=== PATIENT | female | born 1995 | race Two or more races ===

== ENCOUNTER 2019-07-06 20:29 | Emergency (ER) | payer OTHER ==
[2019-07-06 20:36] VITALS: BP 134/82
[2019-07-06] MEDS ORDERED: IBUPROFEN 800 MG TABLET PO STA (20:45)
--- NOTE | 2019-07-06 20:56 | ED Physician Documentation ---
PD HPI LOWER EXT INJURY - Stated complaint Stated Complaint: RT ANKLE INJ - Chief complaint Chief Complaint: Trauma Ext - History obtained from History obtained from: Patient - History of Present Illness PD HPI LOW EXT INJURY LOCATION: Right, Ankle, Foot Type of injury: Twist Where injury occurred: Home Timing - onset: How many hours ago (4) Timing - duration: Hours (4) Timing - details: Abrupt onset Pain level max: 8 Pain level now: 7 Improved by: Rest, Ice, Immobilization Worsened by: Moving, Palpating Associated symptoms: Swelling. No: Weakness, Numbness, Tingling, Discolored Contributing factors: No: Anticoagulated Similar symptoms before: Has not had sx before Recently seen: Not recently seen Review of Systems Constitutional: denies: Fever : denies: Now EGA Musculoskeletal: denies: Neck pain, Back pain PD PAST MEDICAL HISTORY - Past Medical History Past Medical History: No - Past Surgical History Past Surgical History: No - Present Medications Home Medications: Ambulatory Orders Medication Instructions Recorded Confirmed Ibuprofen [Motrin] 800 mg PO Q8H PRN #30 tablet 07/06/19 - Allergies Allergies/Adverse Reactions: Allergies Allergy/AdvReac Type Severity Reaction Status Date / Time No Known Drug Allergies Allergy Verified 07/06/19 20:33 - Living Situation Living Situation: reports: With family Living Arrangement: reports: At home - Social History Does the pt smoke?: No Smoking Status: Never smoker - Family History Family history: reports: Non contributory PD ED PE NORMAL - Vitals Vital signs reviewed: Yes - General General: Alert and oriented X 3, No acute distress - HEENT HEENT: Moist mucous membranes - Derm Derm: Warm and dry - Extremities Extremities: Other (R foot and ankle - TTP diffusely over the foot and ankle. no deformity. no tenderness over the proximal tib/fib. NVI.) - Neuro Neuro: Alert and oriented X 3 Results - Vitals Vitals: Vital Signs - 24 hr 07/06/19 20:33 Temperature 36.8 C Heart Rate 84 Respiratory 14 Rate Blood Pressure 134/82 H O2 Saturation 98 Oxygen O2 Source Room air - Rads (name of study) R foot xray Radiology: Prelim report reviewed, EMP read contemporaneously, See rad report (Minimally displaced avulsion fracture at the base of the fifth metatarsal. ) R ankle xray Radiology: Prelim report reviewed, EMP read contemporaneously, See rad report (Minimally displaced avulsion fracture at the base of the fifth metatarsal. ) Procedures - Splint (location) Right lower extremity Splint applied by: Physician, Tech Type of splint: Fiberglass, Short leg, Posterior Other: Patient tolerated well, No complications, Neurovascular intact, Crutches provided PD MEDICAL DECISION MAKING - ED course Complexity details: reviewed results, re-evaluated patient, considered differential, d/w patient, d/w family ED course: Patient with a minimally displaced avulsion fracture at the base of the fifth metatarsal. Placed in a short leg posterior splint and given crutches. We will have her follow-up with orthopedics for further care. Neurovascularly intact after splint application. Patient counseled regarding signs and symptoms for which I believe and urgent re-evaluation would be necessary. Patient with good understanding of and agreement to plan and is comfortable going home at this time This document was made in part using voice recognition software. While efforts are made to proofread this document, sound alike and grammatical errors may occur. Departure - Departure Disposition: 01 Home, Self Care Clinical Impression: Fracture of base of fifth metatarsal bone Qualifiers: Encounter type: initial encounter Fracture type: closed Laterality: right Qualified Code(s): S92.351A - Displaced fracture of fifth metatarsal bone, right foot, initial encounter for closed fracture Condition: Good Instructions: ED Fx Foot Follow-Up: AGUSTIN DE LOS SANTOS MD [Primary Care Provider] - [facility] [Provider Group] - Within 1 week Prescriptions: Ibuprofen [Motrin] 800 mg PO Q8H PRN #30 tablet PRN Reason: PAIN &/OR FEVER Comments: Return if you worsen. Do not bear weight on this injury. They will likely change you to a walking boot in a week or so. Call orthopedics tomorrow for an appointment.
--- NOTE | 2019-07-06 21:21 | XRAY Report ---
Reason: fall, R foot xray Procedure Date: 07/06/2019 Accession Number: [id number] / [id number] Procedure: XR - Foot 3 View RT CPT Code: Final Report FULL RESULT: EXAM: RIGHT FOOT RADIOGRAPHY EXAM DATE: 07/06/2019 08:44 PM. CLINICAL HISTORY: Fall, R foot x-ray. COMPARISON: ANKLE 3 VIEW RT 07/06/2019 8:42 PM. TECHNIQUE: 3 views. FINDINGS: Bones: Minimally displaced 7 mm fragment of bone at the base of the fifth metatarsal. The remaining bone architecture and alignment appear intact. No bone lesions. Joints: Normal. No subluxations. Soft Tissues: Soft tissue swelling about the fracture. IMPRESSION: Minimally displaced avulsion fracture at the base of the fifth metatarsal. RADIA
--- NOTE | 2019-07-06 21:22 | XRAY Report ---
Reason: fall, R ankle pain Procedure Date: 07/06/2019 Accession Number: [id number] / [id number] Procedure: XR - Ankle 3 View RT CPT Code: Final Report FULL RESULT: EXAM: RIGHT ANKLE RADIOGRAPHY EXAM DATE: 07/06/2019 08:42 PM. CLINICAL HISTORY: Fall, R ankle pain. COMPARISON: FOOT 3 VIEW RT 07/06/2019 8:44 PM. TECHNIQUE: 3 views. FINDINGS: Bones: Minimally displaced 7 mm fragment of bone at the base of the fifth metatarsal. The remaining bone architecture and alignment appear intact. No bone lesions. Joints: Normal. No effusion. No subluxations. The ankle mortise is normally aligned. Soft Tissues: Soft tissue swelling about the fracture. IMPRESSION: Minimally displaced avulsion fracture at the base of the fifth metatarsal. RADIA
== END 2019-07-06 21:58 | disposition home or self-care (01) ==
LOC: ED 20:29
DX: S92.351A Displaced fracture of fifth metatarsal bone, right foot, initial encounter for closed fracture (principal); X50.1XXA Overexertion from prolonged static or awkward postures, initial encounter; Y93.02 Activity, running; Y92.009 Unspecified place in unspecified non-institutional (private) residence as the place of occurrence of the external cause
CPT/HCPCS: 29515; 73610; 73630; 99283; 99284; A9270

== ENCOUNTER 2019-12-27 13:49 | Emergency (ER) | payer OTHER ==
--- NOTE | 2019-12-27 13:54 | ED Physician Documentation ---
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 No: Weakness, Numbness Similar symptoms before: Has not had sx before Review of Systems Skin: reports: Abrasion (s) (index fingertip with abrasion, minimal bleeding.). denies: Laceration (s) Musculoskeletal: reports: Other (pinching type crush injury to tips of fingers. No blood under nails. Tender at tips. Not tender at DIP area.) PD PAST MEDICAL HISTORY - Past Surgical History Past Surgical History: No - Present Medications Home Medications: Ambulatory Orders Medication Instructions Recorded Confirmed Ibuprofen [Motrin] 800 mg PO Q8H PRN #30 tablet 07/06/19 Hydrocodone/Acetaminophen [Kerrick 1 each PO Q6H PRN #10 tablet 12/27/19 5-325 Tablet] Ibuprofen [Motrin] 600 mg PO TID PRN #25 tab 12/27/19 - Allergies Allergies/Adverse Reactions: Allergies Allergy/AdvReac Type Severity Reaction Status Date / Time No Known Drug Allergies Allergy Verified 07/06/19 20:33 - Social History Does the pt smoke?: No Smoking Status: Never smoker PD ED PE NORMAL - Vitals Vital signs reviewed: Yes - General General: Alert and oriented X 3, Well developed/nourished, Other (appears in pain and anxious about the fingertips, reluctant for exam/guarding them. ) - Extremities Extremities: Other (pinching type crush injury to tips of fingers. No blood under nails. Tender at tips. Not tender at DIP area.) - Neuro Neuro: No motor deficit, No sensory deficit Results - Vitals Vitals: Vital Signs - 24 hr 12/27/19 12/27/19 14:07 14:52 Temperature 36.3 C L 36.8 C Heart Rate 88 76 Respiratory 20 15 Rate Blood Pressure 134/78 H 139/84 H O2 Saturation 99 99 Oxygen O2 Source Room air - Rads (name of study) fingers xray Radiology: Prelim report reviewed (no fractures), See rad report PD MEDICAL DECISION MAKING - ED course Complexity details: considered differential, d/w patient Departure - Departure Disposition: 01 Home, Self Care Clinical Impression: Finger contusion Qualifiers: Encounter type: initial encounter Finger: unspecified finger Damage to nail status: without damage Qualified Code(s): S60.00XA - Contusion of unspecified finger without damage to nail, initial encounter Condition: Stable Record reviewed to determine appropriate education?: Yes Instructions: ED Contusion Finger Follow-Up: AGUSTIN DE LOS SANTOS MD [Primary Care Provider] - Prescriptions: Ibuprofen [Motrin] 600 mg PO TID PRN #25 tab PRN Reason: Pain Hydrocodone/Acetaminophen [Kerrick 5-325 Tablet] 1 each PO Q6H PRN #10 tablet PRN Reason: Pain Comments: Your x-ray appears normal without any signs of fractures. The bruising and swelling will hurt in the short-term for a day or 2 until the swelling is down but should improve fairly readily. Use anti-inflammatory such as ibuprofen. Add pain medicine if needed. Ice elevate and rest your fingers often today to reduce swelling. Discharge Date/Time: 12/27/19 14:53
[2019-12-27] MEDS ORDERED: IBUPROFEN 600 MG TABLET PO STA (14:09)
[2019-12-27] MEDS ORDERED: HYDROcod/ACETAM 5/325 MG TABLET PO STA (14:09)
[2019-12-27 14:53] VITALS: BP 139/84
--- NOTE | 2019-12-27 15:02 | XRAY Report ---
PROCEDURE: Finger(s) LT INDICATIONS: crushed fingertips in garage door TECHNIQUE: AP hand, 3 views of the left hand finger(s) acquired. COMPARISON: None FINDINGS: Bones: No fractures or dislocations. No suspicious bony lesions. Soft tissues: No suspicious soft tissue calcifications. IMPRESSION: Mild soft tissue swelling over the distal soft tissues of the fingers, no fracture seen, no foreign b luke found. Reviewed by: Jayjay Dawson MD on 12/27/2019 3:00 PM PDT Approved by: Jayjay Dawson MD on 12/27/2019 3:00 PM PDT Station ID: [id number]
== END 2019-12-27 14:53 | disposition home or self-care (01) ==
LOC: ED 13:49
DX: S60.00XA Contusion of unspecified finger without damage to nail, initial encounter (principal); W23.1XXA Caught, crushed, jammed, or pinched between stationary objects, initial encounter; Y92.02 Mobile home as the place of occurrence of the external cause
CPT/HCPCS: 73140; 99283; A9270